=== PATIENT | female | born 1990 | race Caucasian/White ===

== ENCOUNTER 2018-12-18 09:46 | Emergency (ER) | payer BC ==
[2018-12-18 09:53] VITALS: BP 101/75; PULSE 87; RESP 18; TEMP 97.9
[2018-12-18] MEDS ORDERED: LIDOCAINE 1% INJ 10MG/ML (20 ML MDV) SQ ONE (10:02)
--- NOTE | 2018-12-18 10:04 | ED ---
Wound/Laceration HPI - General Chief Complaint: Wound/Laceration Stated Complaint: left hand laceration Time Seen by Provider: 12/18/18 09:55 Source: patient, RN notes reviewed, old records reviewed Mode of arrival: ambulatory Limitations: no limitations - History of Present Illness Initial Comments: Patient is a 28-year-old female who presents emergency department today for evaluation with complaints of multiple lacerations over her arms and hand. She reports that she was stepping out of the shower in the shower glass door broke on the Patient. She reports multiple areas of lacerations. She states her tetanus is not up-to-date. Patient reportedly is well-controlled. She has small areas of glass over her arms and legs. - Related Data Home Medications Medication Instructions Recorded Confirmed Atenolol [Tenormin] 25 mg PO DAILY 12/18/18 12/18/18 Escitalopram [Lexapro] 10 mg PO DAILY 12/18/18 12/18/18 Levothyroxine Sodium [Synthroid] 50 mcg PO DAILY 12/18/18 12/18/18 Liraglutide [Saxenda] 3 mg SQ DAILY 12/18/18 12/18/18 Topiramate [Topamax] 25 mg PO BID 12/18/18 12/18/18 Allergies Allergy/AdvReac Type Severity Reaction Status Date / Time Penicillins Allergy Rash/Hives Verified 12/18/18 10:38 Review of Systems ROS Statement: Those systems with pertinent positive or pertinent negative responses have been documented in the HPI. ROS Other: All systems not noted in ROS Statement are negative. Past Medical History Past Medical History: Thyroid Disorder Additional Past Medical History / Comment(s): rapid heart rate History of Any Multi-Drug Resistant Organisms: None Reported Past Surgical History: Cholecystectomy, Tonsillectomy Past Psychological History: Anxiety Smoking Status: Never smoker Past Alcohol Use History: Rare Past Drug Use History: None Reported General Exam - General Exam Comments Initial Comments: 28-year-old female. Alert and oriented. No distress. Limitations: no limitations General appearance: alert, in no apparent distress Head exam: Present: atraumatic Eye exam: Present: normal appearance, PERRL, EOMI. Absent: scleral icterus, conjunctival injection, periorbital swelling ENT exam: Present: normal exam Neck exam: Present: normal inspection. Absent: tenderness, meningismus, lymphadenopathy Respiratory exam: Present: normal lung sounds bilaterally. Absent: respiratory distress, wheezes, rales, rhonchi, stridor Cardiovascular Exam: Present: regular rate, normal rhythm, normal heart sounds. Absent: systolic murmur, diastolic murmur, rubs, gallop, clicks GI/Abdominal exam: Present: soft, normal bowel sounds. Absent: distended, tenderness, guarding, rebound, rigid Extremities exam: Present: normal inspection, full ROM, normal capillary refill, other (Patient has multiple superficial lacerations over the forearms and upper arm and left and right extremity. Patient has a 2 cm laceration over the hand that is open to require sutures. Patient has full range of motion of the fingers. Normal sensation distally.). Absent: tenderness, pedal edema, joint swelling, calf tenderness Back exam: Present: normal inspection Neurological exam: Present: alert, oriented X3, CN II-XII intact Psychiatric exam: Present: normal affect, normal mood Skin exam: Present: warm, dry, intact, normal color. Absent: rash Course Vital Signs 12/18/18 09:48 Temperature 97.9 F Pulse Rate 87 Respiratory 18 Rate Blood Pressure 101/75 O2 Sat by Pulse 98 Oximetry Procedures - Laceration Laceration #1 Size (cm): 2 Description: linear Depth: simple, single layer Anesthetic Used: lidocaine 1% Anesthesia Technique: local infiltration Amount (mls): 2 Pre-repair: wound explored, irrigated extensively Type of Sutures: nylon Size of Sutures: 5-0 Number of Sutures: 3 Patient Tolerated Procedure: well, no complications Medical Decision Making - Medical Decision Making Patient is 28-year-old female multiple superficial lacerations over the forearms bilaterally and hand. She had one laceration on the right dorsum hand which required suturing with 3 sutures. The area is well approximated. Patient updated tetanus shot. Patient's lacerations over the forearm very superficial, cleaned and closed with a small amount of Dermabond. I discussed the Patient follow-up with primary care doctor to have sutures removed in suture instructions. All questions were answered return parameters were discussed. Disposition Clinical Impression: Multiple abrasions, Hand laceration Disposition: HOME SELF-CARE Condition: Good Additional Instructions: Patient has have close follow-up with primary care doctor. Please return to the emergency room in 8-10 days to have sutures removed. Please leave wound covered for the first 24-48 hours and then leave open to air after that time. Please use clean soap and water to clean the suture area to prevent scabbing over the top of your sutures. Please watch for any signs of infection which may include but not limited to increased pain, swelling, redness, fever or chills. Please return to the emergency room if any signs of infection do occur. Please return to the emergency room for any other concerns or complications. Is patient prescribed a controlled substance at d/c from ED?: No Referrals: Nonstaff,Physician [Primary Care Provider] - 1-2 days Time of Disposition: 11:15
[2018-12-18] MEDS ORDERED: DIPH,PERTUS(ACELL)TETVAC-LF 0.5 ML VIAL IM ONE (10:06)
[2018-12-18] MEDS ORDERED: TOPICAL SKIN ADHESIVE 1 EACH AMP TOPICAL ONE (10:34)
--- NOTE | 2018-12-28 01:15 | CDI ---
Dear Ciro Jimenez DO: Please do addendum the length of the lacerations of forearm and upper arms which closed with Dermabond. Thank you, Brandt Beyer, [employer] Engineer. If you have any questions, please contact [employer] at [phone]. Addendum added MTDD
== END 2018-12-18 11:41 | disposition home or self-care (01) ==
LOC: EC 09:46
DX: S61.411A Laceration without foreign body of right hand, initial encounter (principal); S51.812A Laceration without foreign body of left forearm, initial encounter; S51.811A Laceration without foreign body of right forearm, initial encounter; S41.112A Laceration without foreign body of left upper arm, initial encounter; S41.111A Laceration without foreign body of right upper arm, initial encounter; E07.9 Disorder of thyroid, unspecified; F32.9 Major depressive disorder, single episode, unspecified; F41.9 Anxiety disorder, unspecified; Z88.0 Allergy status to penicillin; Z79.84 Long term (current) use of oral hypoglycemic drugs; Z79.890 Hormone replacement therapy; Z79.899 Other long term (current) drug therapy; Z86.79 Personal history of other diseases of the circulatory system; Z23 Encounter for immunization; W20.8XXA Other cause of strike by thrown, projected or falling object, initial encounter; Y93.89 Activity, other specified; Y92.002 Bathroom of unspecified non-institutional (private) residence as the place of occurrence of the external cause
CPT/HCPCS: 99283; 12002; 90471; 90715; J2001